=== PATIENT | male | born 1995 | race African-American/Black ===

== ENCOUNTER 2023-10-04 13:51 | Emergency (ER) | payer SELFPAY ==
[~2023-10-04] VITALS: Ht 180.3 cm; Wt 64.0 kg
[2023-10-04 14:12] VITALS: BP 112/85; PULSE 103; RESP 18; TEMP 98.6; O2SAT 100
== END 2023-10-04 15:35 | disposition left against medical advice (07) ==
LOC: ER 13:51
DX: H57.11 Ocular pain, right eye (principal)
CPT/HCPCS: 99281